=== PATIENT | female | born 1975 | race Caucasian/White ===

== ENCOUNTER → 2017-08-18 | Day surgery (SDC) | payer OTHER ==
[~2017-08-18] VITALS: Ht 160 cm; Wt 96.2 kg
[~2017-08-18] MED LIST: 0.9% Sodium Chloride 1,000 ML IV SCH; CITA20TA11 PO; POLY17PO6 PO; PRE20 PO; Sodium Chloride LOK Flush 10 mL Syringe IV PRN; fentaNYL-PF 50 mCg/mL 2 mL Inj IVPUSH PRN
[2017-08-18 10:23] VITALS: BP 117/77; PULSE 68; O2SAT 96
[2017-08-18 11:32] VITALS: BP 109/64; PULSE 73; O2SAT 95
[2017-08-18 11:42] VITALS: BP 108/71; PULSE 75; O2SAT 98
[2017-08-18 11:52] VITALS: BP 104/75; PULSE 73; O2SAT 99
--- NOTE | 2017-08-18 14:30 | ENDO ---
[address] [address] ENDOSCOPY PROCEDURE PATIENT: TIO YOST : 1975 MR#: [id number] ADMIT: 08/18/2017 JOB ID: [id number] DATE OF SERVICE: 08/18/2017 TYPE OF OPERATION: 1. Esophagogastroduodenoscopy with biopsy. 2. Colonoscopy biopsy. PREOPERATIVE DIAGNOSIS(ES): 1. Rectal bleeding. 2. Weight loss. 3. Change in bowel habits. POSTOPERATIVE DIAGNOSIS(ES): 1. Status post Cate fundoplication. 2. Normal colonoscopy, status post biopsy. ANESTHESIA: Fentanyl 175 mcg and Versed 8 mg IV administered. COMPLICATIONS: None. BLOOD LOSS: Minimal. DESCRIPTION OF PROCEDURE: After risks and benefits explained to the patient, informed consent obtained. After anesthesia administered, upper endoscope was then inserted in the mouth, intubating through esophagus, stomach, second portion of duodenum. Mucosa carefully examined. After procedure was done, the scope withdrawn and procedure terminated. Colonoscope was then inserted from the rectum to the terminal ileum and mucosa carefully examined. Prep of the patient was excellent. After the procedure was done, scope withdrawn and the procedure terminated. FINDINGS: Upon inspection of the esophagus, the esophagus was normal without masses, ulcers, or lesions. Z-line located at 35 cm from incisors. Upon entering the stomach, the stomach was also normal without masses, ulcers, or lesions. Retroflexion showed status post Cate fundoplication, intact. Duodenal bulb, first and second portions normal. Biopsies taken of duodenum, antrum and body of stomach. Upon inspection of the anus, no masses, hemorrhoids, ulcers, or fissures that were seen. Throughout the entire examination, no polyps, masses, or lesions. Biopsies taken of the terminal ileum and random colon. Retroflexion was normal. IMPRESSION: 1. Normal colonoscopy, status post biopsy. 2. Status post Cate fundoplication. RECOMMENDATION: Await pathology results. Follow up in GI clinic as needed.
--- NOTE | 2017-08-23 14:11 | PATH ---
SURGICAL PATHOLOGY Attending Physician:Wallace Fernandes MD CASE STATUS: Signed Out PATIENT NAME: TIO YOST PID: [id number] : 1975 DATE COLLECTED:08/18/2017 20:44 SPECIMEN: 1: Duodenum, Biopsy 2: Stomach, Antrum, Biopsy 3: Gastric, Biopsy 4: Ileum, Biopsy 5: Colon, Biopsy CLINICAL HISTORY: 1). DUODENUM BIOPSY 2). ANTRUM BIOPSY 3). BODY BIOPSY 4). TERMINAL ILEUM BIOPSY 5). RANDOM COLON BIOPSY FINAL DIAGNOSIS: 1. Duodenum, Biopsy: Normal small bowel mucosa. Negative for inflammation, histologic evidence of celiac disease, granulomas, dysplasia, and malignancy. 2. Antrum, Biopsy: Antral mucosa with reactive gastropathy. Negative for inflammation and Helicobacter organisms. Negative for intestinal metaplasia, dysplasia, and malignancy. 3. Gastric Body, Biopsy: Normal body mucosa. Negative for inflammation and Helicobacter organisms. Negative for intestinal metaplasia, dysplasia, and malignancy. 4. Terminal Ileum, Biopsy: Normal small bowel mucosa. Negative for inflammation, granulomas, dysplasia, and malignancy. 5. Random Colon, Biopsy: Normal colonic mucosa. Negative for inflammation, microscopic colitis, dysplasia, and malignancy. ICD10: K31.9 GROSS DESCRIPTION: The specimen is received in five formalin filled containers labeled with the patient's name. 1). The specimen is labeled "duodenum" and consists of 2 portions of tissue which aggregate to 0.3 x 0.2 x 0.2 CM. The specimen is entirely submitted in cassette 1A. 2). The specimen is labeled "antrum" and consists of 2 portions of tissue which aggregate to 0.2 x 0.2 x 0.2 CM. The specimen is entirely submitted in cassette 2A. 3). The specimen is labeled "body" and consists of 2 portions of tissue which aggregate to 0.3 x 0.3 x 0.2 CM. The specimen is entirely submitted in cassette 3A. 4). The specimen is labeled " TI " and consists of 2 portions of tissue which aggregate to 0.3 x 0.2 x 0.2 CM. The specimen is entirely submitted in cassettes 4A. 5). The specimen is labeled "random colon" and consists of multiple portions of tissue which aggregate to 0.4 x 0.4 x 0.2 CM. The specimen is entirely submitted in cassette 5A. 9/29/2017DC ICD-9 CODES: CPT CODES: 1: 07916 2: 80005 3: 79668 4: 53200 5: 56279 Electronically Signed Out Donnell Castro MD, PhD [facility] [address], [place] [address] Technical component performed at [facility], [facility] [address], [place], [address]
== END | disposition home or self-care (01) ==
LOC: END 00:49
PROVIDERS: ATTEND Internal Medicine Gastroenterology
DX: K62.5 Hemorrhage of anus and rectum (principal); K31.9 Disease of stomach and duodenum, unspecified; R63.4 Abnormal weight loss; I10 Essential (primary) hypertension; G47.33 Obstructive sleep apnea (adult) (pediatric); F32.9 Major depressive disorder, single episode, unspecified; G43.909 Migraine, unspecified, not intractable, without status migrainosus; K21.9 Gastro-esophageal reflux disease without esophagitis; M79.7 Fibromyalgia
CPT/HCPCS: 43239; 45380; 99153; G0500; J2250; J3010; J7030